=== PATIENT | female | born 1990 | race Caucasian/White ===

== ENCOUNTER 2019-02-24 17:50 | Emergency (ER) | payer MEDICAID ==
[~2019-02-24] VITALS: Ht 154.9 cm; Wt 90.3 kg
[2019-02-24 17:56] VITALS: BP 153/85
--- NOTE | 2019-02-24 17:58 | NUR ---
TO LOBBY AWAITNG BED IN ED
--- NOTE | 2019-02-24 18:22 | NUR ---
PT TO ER BED 11.
--- NOTE | 2019-02-24 18:36 | NUR ---
PT BIB FAMILY C/O INTERMITENT BUE NUMBNESS X 1 WEEK. PT REPORTS ACCOMPANYING THROBING MIDSTERNAL CP THAT RADIATES TO LT AXILARY WITH ANXIETY. PT AAOX4, COOPERATIVE, FACIAL ASSYMETRY INTACT, HAND BURR GRINDER EQUAL/STRONG, GAIT STEADY, SPEECH CLEAR. NO EDEMA, JUGULAR CLEMENTE DISTENTION, CAP REFIL <2 SEC. VSS. ER MD TO SEE PT. MEDHX:ANXIETY RX:DENIES
--- NOTE | 2019-02-24 19:57 | NUR ---
DR. AUSTIN BEDSIDE EVALUATING PT
[2019-02-24 20:37] LABS: BASOPHILS % (AUTO) 0.5 % (0.0-2.0); EOSINOPHILS # (AUTO) 0.1 K/uL (0-0.4); EOSINOPHILS % (AUTO) 1.2 % (0.0-4.0); HEMATOCRIT 43.2 % (36-48); HEMOGLOBIN 14.3 g/dL (12.0-16.0); MEAN CORPUSCULAR HEMOGLOBIN 29 pg (27-31); MEAN CORPUSCULAR HGB CONC 33 g/dL (33-37); MEAN CORPUSCULAR VOLUME 87.3 fL (80-94); MONOCYTES # (AUTO) 0.6 K/uL (0.8-1.0); MONOCYTES % (AUTO) 6.7 % (1.7-9.3); NEUTROPHILS # (AUTO) 5.7 K/uL (1.8-7.7); NEUTROPHILS % (AUTO) 67.6 % (42.2-75.2); PLATELET COUNT (AUTO) 208 K/uL (140-450); RED BLOOD CELL COUNT(AUTO) 4.95 MIL/uL (4.20-5.40); RED CELL DISTRIBUTION WIDTH 13.9 % (11.6-13.7); WHITE BLOOD COUNT (AUTO) 8.4 K/uL (4.8-10.8)
[2019-02-24 21:18] LABS: ANION GAP 14.2 (8-16); CARBON DIOXIDE 26.5 mmol/L (21-32); CREATININE 0.6 mg/dL (0.6-1.3); POTASSIUM 3.7 mmol/L (3.5-5.1)
[2019-02-24 22:18] VITALS: BP 113/59
--- NOTE | 2019-02-24 22:18 | NUR ---
Patient discharged with v/s stable. Written and verbal after care instructions given and explained. Patient verbalized understanding. Ambulatory with steady gait. All questions addressed prior to discharge. Advised to follow up with PMD.
== END 2019-02-24 22:18 | disposition home or self-care (01) ==
LOC: MED 17:50
DX: M79.601 Pain in right arm (principal); M79.602 Pain in left arm; M79.605 Pain in left leg; M79.604 Pain in right leg
CPT/HCPCS: 36415; 80048; 81002; 81025; 82553; 85025; 99283

== ENCOUNTER 2019-03-23 04:21 | Emergency (ER) | payer MEDICAID ==
[~2019-03-23] VITALS: Ht 154.9 cm; Wt 89.4 kg
[2019-03-23 04:25] VITALS: BP 125/77
--- NOTE | 2019-03-23 04:25 | NUR ---
TO BED # 04 AMBULATORY
--- NOTE | 2019-03-23 04:50 | NUR ---
C/O LEFT SIDE SHARP, BURNING DIFFUSE ABD PAIN OFF AND ON X 2 DAYS WITH MILD N/V. PT DENIES DIARRHEA. PT STATES "I MIGHT BE A LITTLE CONSTIPATED". DENIES DYSURIA. PMH-- APPENDECTOMY @ 8 YEARS OLD RX-- DENIES
--- NOTE | 2019-03-23 04:57 | NUR ---
Dr. Bowie examining patient.
[2019-03-23] MEDS ORDERED: KETOROLAC 60 MG/2 ML VIAL IM ONE (05:00)
[2019-03-23] MEDS ORDERED: ONDANSETRON 4 MG ODT PO ONE (05:00)
--- NOTE | 2019-03-23 05:10 | NUR ---
PT RECEIVED 60 MG IM TORADOL FOR 10/10 ABD PAIN. WILL REASSESS.
[2019-03-23] MEDS ORDERED: MORPHINE SULFATE 4 MG/ML SYR IM ONE (05:35)
--- NOTE | 2019-03-23 05:40 | NUR ---
PT REPORTS MINIMLA RELIEF IN PAIN. FACIAL GRIMACING, GUARDING ABD. 8/[address] KIDD MADE AWARE. NEW ORDERS RECEIVED.
--- NOTE | 2019-03-23 05:52 | NUR ---
PT RECEIVED 4 MG IM MORPHINE FOR 8 PAIN. WILL REASSESS.
--- NOTE | 2019-03-23 06:12 | NUR ---
PT REPORTS RELIEF IN PAIN; 5/10.
[2019-03-23 06:14] VITALS: BP 122/78
--- NOTE | 2019-03-23 06:14 | NUR ---
Patient discharged with v/s stable. Written and verbal after care instructions given and explained. Patient verbalized understanding. Rx for Motrin, Prilosec, Zofran given. Ambulatory with steady gait. All questions addressed prior to discharge. Advised to follow up with PMD.
== END 2019-03-23 06:14 | disposition home or self-care (01) ==
LOC: MED 04:21
DX: R10.12 Left upper quadrant pain (principal); R11.0 Nausea; Z90.49 Acquired absence of other specified parts of digestive tract
CPT/HCPCS: 81002; 81025; 96372; 99283; J1885; J2270; Q0162

== ENCOUNTER 2019-07-05 19:01 | Emergency (ER) | payer MEDICAID ==
[~2019-07-05] VITALS: Ht 154.9 cm; Wt 90.7 kg
[2019-07-05 19:12] VITALS: BP 122/81
--- NOTE | 2019-07-05 19:20 | NUR ---
28 YEAR OLD FEMALE COMPLAINS OF 9/10 CHEST PAIN THAT RADIATES TO LEFT ARM X 2 WEEKS. PATIENT ALSO COMPLAINS OF SOME NUMBNESS TO LEFT SIDE OF FACE. PATIENT COMPLAINS OF SOME SOB. LUNGS CTABL, SPO2 99%. PATIENT AOX4, BREATHING EVEN AND UNLABORED, SKIN WARM AND DRY. BED IN LOWEST POSIITON, LOCKED, BED RAIL UPX1. ERMD MADE AWARE OF STATUS, EMT WITH EKG AT BEDSIDE. PMH - APPENDIX REMOVAL ALLERGIES - NKA
[2019-07-05] MEDS ORDERED: KETOROLAC 15 MG/ML VIAL IM ONE (19:30)
[2019-07-05] MEDS ORDERED: LORazepam 2 MG/ML VIAL IVP ONE (19:30)
[2019-07-05] MEDS ORDERED: LORazepam 2 MG/ML VIAL IM ONE (19:35)
[2019-07-05 20:46] VITALS: BP 118/66
== END 2019-07-05 20:46 | disposition home or self-care (01) ==
LOC: MED 19:01
DX: R07.89 Other chest pain (principal); R06.02 Shortness of breath; R20.2 Paresthesia of skin; Z90.49 Acquired absence of other specified parts of digestive tract
CPT/HCPCS: 71045; 81025; 93005; 96372; 99284; J1885; J2060

== ENCOUNTER 2019-09-02 13:45 | Emergency (ER) | payer MEDICAID ==
[~2019-09-02] VITALS: Ht 154.9 cm; Wt 88.2 kg
[2019-09-02 13:52] VITALS: BP 126/69
--- NOTE | 2019-09-02 14:08 | NUR ---
DR ELLIOTT EVALUATING PT AT BEDSIDE
[2019-09-02] MEDS ORDERED: MORPHINE SULFATE 4 MG/ML SYR IVP ONE (14:10)
--- NOTE | 2019-09-02 14:29 | NUR ---
U/S TECH AT BEDSIDE
[2019-09-02 14:31] LABS: BASOPHILS % (AUTO) 0.6 % (0.0-2.0); EOSINOPHILS # (AUTO) 0.1 K/uL (0-0.4); EOSINOPHILS % (AUTO) 1.8 % (0.0-4.0); HEMATOCRIT 44.6 % (36-48); LYMPHOCYTES # (AUTO) 2.3 K/uL (2.5-16.5); LYMPHOCYTES % (AUTO) 33.9 % (20.5-51.1); MEAN CORPUSCULAR HEMOGLOBIN 30 pg (27-31); MEAN CORPUSCULAR HGB CONC 34 g/dL (33-37); MEAN CORPUSCULAR VOLUME 88.1 fL (80-94); MONOCYTES # (AUTO) 0.5 K/uL (0.8-1.0); MONOCYTES % (AUTO) 6.9 % (1.7-9.3); NEUTROPHILS # (AUTO) 3.9 K/uL (1.8-7.7); NEUTROPHILS % (AUTO) 56.8 % (42.2-75.2); PLATELET COUNT (AUTO) 211 K/uL (140-450); RED BLOOD CELL COUNT(AUTO) 5.06 MIL/uL (4.20-5.40); RED CELL DISTRIBUTION WIDTH 14.2 % (11.6-13.7); WHITE BLOOD COUNT (AUTO) 6.9 K/uL (4.8-10.8)
--- NOTE | 2019-09-02 14:50 | NUR ---
29/F RUQ PAIN RADIATING TO BACK X 3 WEEKS. REPORTS INCREASE IN PAIN THIS WEEK. STATES OCCASIONAL NAUSEA WITHOUT VOMITING. STATES DECREASED APPETITE. 8/10 NOW, WORSE AFTER EATING VSS PMHX--NONE NKDA NEGATIVE COVID SCREENING.
[2019-09-02 14:52] LABS: ALBUMIN 4.2 g/dL (3.4-5.0); ANION GAP 12.8 (8-16); CARBON DIOXIDE 25.6 mmol/L (21-32); CREATININE 0.8 mg/dL (0.6-1.3); POTASSIUM 3.4 mmol/L (3.5-5.1); TOTAL BILIRUBIN 0.6 mg/dL (0.0-1.0)
--- NOTE | 2019-09-02 15:38 | NUR ---
PT STATES PAIN HAS DECREASED NOW TO 4/10 FROM 8/10 EARLIER.
--- NOTE | 2019-09-02 15:57 | NUR ---
NOTIFIED CT DEPARTMENT TO COME GET PATIENT FOR ORDERED CT SCAN.
--- NOTE | 2019-09-02 16:05 | NUR ---
CT SCAN TECHNICIAN AT BEDSIDE, PT TO CT SCAN VIA W/C.
[2019-09-02 16:45] VITALS: BP 103/62
--- NOTE | 2019-09-02 16:45 | NUR ---
Patient discharged with v/s stable. Written and verbal after care instructions given and explained. Patient alert, oriented and verbalized understanding of instructions. Ambulatory with steady gait. All questions addressed prior to discharge. ID band removed. Patient advised to follow up with PMD. Rx of ZANTAC given. Patient educated on indication of medication including possible reaction and side effects. Opportunity to ask questions provided and answered.
== END 2019-09-02 16:45 | disposition home or self-care (01) ==
LOC: MED 13:45
DX: K76.0 Fatty (change of) liver, not elsewhere classified (principal); K29.70 Gastritis, unspecified, without bleeding; Z90.49 Acquired absence of other specified parts of digestive tract
CPT/HCPCS: 36415; 74176; 76705; 80053; 81025; 83690; 85025; 96374; 99285; J2270; Q0092

== ENCOUNTER 2019-11-02 22:23 | Emergency (ER) | payer MEDICAID ==
[~2019-11-02] VITALS: Ht 154.9 cm; Wt 90.3 kg
[2019-11-02 22:25] VITALS: BP 129/70
[2019-11-02] MEDS ORDERED: cloNIDine 0.1 MG TAB PO STA (23:18)
[2019-11-03 00:09] VITALS: BP 113/65
== END 2019-11-03 00:08 | disposition home or self-care (01) ==
LOC: MED 22:23
DX: F41.9 Anxiety disorder, unspecified (principal); F41.0 Panic disorder [episodic paroxysmal anxiety]; F32.9 Major depressive disorder, single episode, unspecified; I10 Essential (primary) hypertension
CPT/HCPCS: 99283

== ENCOUNTER 2020-01-19 15:40 | Emergency (ER) | payer MEDICAID ==
[~2020-01-19] VITALS: Ht 154.9 cm; Wt 86.2 kg
[2020-01-19 15:42] VITALS: BP 140/79
--- NOTE | 2020-01-19 15:49 | NUR ---
Patient ambulated to bed 3. RN evaluating patient at bedside.
--- NOTE | 2020-01-19 15:50 | NUR ---
STATES NAUSEA WITHOUT VOMITING. NO FEVER. PAIN CONSTANT THROUGHOUT DAY, NOT WORSE AFTER EATING. PT AOX4 , AFIBRILE , AMBULAORY WITH STEADY GAIT, PINK PALPEBRAL CONJUNCTIVA , ANICTERIC SCLERA , SCE, FLAT SOFT ABDOMEN. HX- DENIES NKA
--- NOTE | 2020-01-19 16:02 | NUR ---
ERMA MONTOYA AT BEDSIDE EVALUATING PT.
[2020-01-19] MEDS ORDERED: KETOROLAC 30 MG/ML VIAL IM ONE (16:05)
[2020-01-19] MEDS ORDERED: DICYCLOMINE HCL LIQUID 20 MG, ALUMINUM HYD/MAG/SIMETHICONE 30 ML, LIDOCAINE VISCOUS 2% ... PO ONE ×3 (16:05)
[2020-01-19] MEDS ORDERED: LIDOCAINE VISCOUS 2% 20 ML UDC ONE (16:09)
[2020-01-19] MEDS ORDERED: DICYCLOMINE HCL LIQUID 10 MG/5 ML UDC ONE (16:09)
[2020-01-19] MEDS ORDERED: ALUMINUM HYD/MAG/SIMETHICONE 30 ML UDC ONE (16:09)
--- NOTE | 2020-01-19 16:22 | NUR ---
PT COMFORTABLE IN BED SIDE RAIL UP X1 AND LOCK AT LOWEST POSITION.
[2020-01-19 16:42] LABS: BASOPHILS % (AUTO) 0.3 % (0.0-2.0); EOSINOPHILS # (AUTO) 0.1 K/uL (0-0.4); EOSINOPHILS % (AUTO) 1.4 % (0.0-4.0); HEMATOCRIT 41.7 % (36-48); HEMOGLOBIN 13.8 g/dL (12.0-16.0); LYMPHOCYTES # (AUTO) 2.1 K/uL (2.5-16.5); LYMPHOCYTES % (AUTO) 32.7 % (20.5-51.1); MEAN CORPUSCULAR HEMOGLOBIN 29 pg (27-31); MEAN CORPUSCULAR HGB CONC 33 g/dL (33-37); MEAN CORPUSCULAR VOLUME 87.7 fL (80-94); MONOCYTES # (AUTO) 0.4 K/uL (0.8-1.0); NEUTROPHILS # (AUTO) 3.9 K/uL (1.8-7.7); NEUTROPHILS % (AUTO) 59.6 % (42.2-75.2); PLATELET COUNT (AUTO) 211 K/uL (140-450); RED BLOOD CELL COUNT(AUTO) 4.76 MIL/uL (4.20-5.40); RED CELL DISTRIBUTION WIDTH 13.8 % (11.6-13.7); WHITE BLOOD COUNT (AUTO) 6.6 K/uL (4.8-10.8)
[2020-01-19 17:01] LABS: ALBUMIN 3.9 g/dL (3.4-5.0); ANION GAP 13.9 (8-16); CARBON DIOXIDE 27.5 mmol/L (21-32); CREATININE 0.5 mg/dL (0.6-1.3); POTASSIUM 3.4 mmol/L (3.5-5.1); TOTAL BILIRUBIN 0.5 mg/dL (0.0-1.0)
--- NOTE | 2020-01-19 17:15 | NUR ---
benita mercado at bedside reevaluating pt.
--- NOTE | 2020-01-19 17:23 | NUR ---
ERMA Mendoza and Dr. Bonner are evaluating the patient at bedside.
[2020-01-19 17:42] VITALS: BP 135/75
--- NOTE | 2020-01-19 17:43 | NUR ---
Patient discharged with v/s stable. Written and verbal after care instructions given and explained regarding abdominal pain nonspecific. Patient alert, oriented and verbalized understanding of instructions. Ambulatory with steady gait. All questions addressed prior to discharge. ID band removed. Patient advised to follow up with PMD. Rx of bentyl , pepcid and zofran given. Patient educated on indication of medication including possible reaction and side effects. Opportunity to ask questions provided and answered.Excuse from work given .
== END 2020-01-19 17:43 | disposition home or self-care (01) ==
LOC: MED 15:40
DX: R10.31 Right lower quadrant pain (principal); R03.0 Elevated blood-pressure reading, without diagnosis of hypertension
CPT/HCPCS: 36415; 80053; 81002; 81025; 83690; 85025; 96372; 99283; J1885

== ENCOUNTER 2020-08-26 19:07 | Emergency (ER) | payer MEDICAID ==
[~2020-08-26] VITALS: Ht 152.4 cm; Wt 87.5 kg
[2020-08-26 19:16] VITALS: BP 115/66
--- NOTE | 2020-08-26 19:21 | NUR ---
PT AMBULATORY TO BED #7
[2020-08-26] MEDS ORDERED: ALUMINUM HYD/MAG/SIMETHICONE 30 ML, DICYCLOMINE HCL LIQUID 20 MG, LIDOCAINE VISCOUS 2% ... PO ONE ×3 (19:30)
[2020-08-26] MEDS ORDERED: NACL 0.9% 1,000 ML IV SCH (19:30)
[2020-08-26] MEDS ORDERED: DICYCLOMINE HCL LIQUID 10 MG/5 ML UDC ONE (19:37)
[2020-08-26] MEDS ORDERED: ALUMINUM HYD/MAG/SIMETHICONE 30 ML UDC ONE (19:37)
[2020-08-26] MEDS ORDERED: LIDOCAINE VISCOUS 2% 20 ML UDC ONE (19:37)
--- NOTE | 2020-08-26 19:50 | NUR ---
30 Y/O FEMALE PRESENTED TO ED C/O UPPER QUADRANT ABD PAIN X 1 WEEK. PT STATES SHE HAS BEEN WORKING 11 HR SHIFTS AND STARTING FEELING TIRED AND WEAK AND THEN STARTED HAVING ABD PAIN. PT STATES SHE WENT AND SAW HER PCP TODAY AND WAS DX W/ GASTRITIS AND PROVIDED W/ RX OF OMEPRAZOLE. PT STATES SHE HAS TRIED TAKING OMEPRAZOLE W/ NO RELIEF. PT STATES HER ABD FEELS BLOATED AND HAS INTERMITTENT PAIN TO HER BACK. NORMOACTIVE BOWEL SOUNDS. PT STATES SHE HAS HAD A BM TODAY BUT IT WAS SMALL. SHE HAS HAD NO PREVIOUS ABNORMAL BM AT THIS TIME. PT DENIES ANY NAUSEA , VOMITTING , DIARRHEA OR CONSTIPATION. PT PLACED IN GOWN, RESTING IN BED LOCKED AND IN LOWEST POSITION, HOB ELEVATED, SIDE RAIL X 1. VSS. NO ACUTE DISTRESS NOTED. PMH: HTN, GASTRITIS NKA
[2020-08-26 20:20] LABS: BASOPHILS % (AUTO) 0.4 % (0.0-2.0); HEMATOCRIT 45.4 % (36-48); HEMOGLOBIN 15.4 g/dL (12.0-16.0); LYMPHOCYTES # (AUTO) 1.1 K/uL (2.5-16.5); LYMPHOCYTES % (AUTO) 25.7 % (20.5-51.1); MEAN CORPUSCULAR HEMOGLOBIN 30 pg (27-31); MEAN CORPUSCULAR HGB CONC 34 g/dL (33-37); MEAN CORPUSCULAR VOLUME 88.3 fL (80-94); MONOCYTES # (AUTO) 0.4 K/uL (0.8-1.0); MONOCYTES % (AUTO) 10.1 % (1.7-9.3); NEUTROPHILS # (AUTO) 2.8 K/uL (1.8-7.7); NEUTROPHILS % (AUTO) 63.8 % (42.2-75.2); PLATELET COUNT (AUTO) 161 K/uL (140-450); RED BLOOD CELL COUNT(AUTO) 5.14 MIL/uL (4.20-5.40); RED CELL DISTRIBUTION WIDTH 13.9 % (11.6-13.7); WHITE BLOOD COUNT (AUTO) 4.4 K/uL (4.8-10.8)
--- NOTE | 2020-08-26 20:31 | NUR ---
ERMD MADE AWARE PT IS STILL C/O OF 11/23 ADB PAIN - ERMD WILL ORDER MEDICATION FOR PAIN.
[2020-08-26 20:37] LABS: ALBUMIN 4.2 g/dL (3.4-5.0); ANION GAP 8.9 (8-16); CARBON DIOXIDE 26.6 mmol/L (21-32); CREATININE 0.7 mg/dL (0.6-1.3); POTASSIUM 3.5 mmol/L (3.5-5.1); TOTAL BILIRUBIN 0.4 mg/dL (0.0-1.0)
[2020-08-26] MEDS ORDERED: KETOROLAC 30 MG/ML VIAL IVP ONE (20:40)
--- NOTE | 2020-08-26 21:22 | NUR ---
ERMD AT BEDSIDE FOR MEDICAL EVALUATION.
[2020-08-26] MEDS ORDERED: ACET-8386 PO (21:32)
--- NOTE | 2020-08-26 21:40 | NUR ---
IV removed, catheter intact and site benign. Applied folded 4x4 gauze and tape to stop bleeding.
[2020-08-26 21:44] VITALS: BP 120/68
[2020-08-26 22:18] LABS: APPEARANCE,URINE CLEAR (CLEAR); BILIRUBIN,URINE NEGATIVE (NEGATIVE); BLOOD, URINE TRACE-I (NEGATIVE); COLOR,URINE YELLOW (YELLOW); LEUKOCYTE ESTERASE ,URINE TRACE (NEGATIVE); NITRITE, URINE NEGATIVE (NEGATIVE); PH,URINE 6.5 (5.0-9.0); UGLUCOSE NEGATIVE (NEGATIVE)
[2020-08-26 22:36] LABS: RBC,URINE 0-5 /HPF (0-5)
== END 2020-08-26 21:44 | disposition home or self-care (01) ==
LOC: MED 19:07
DX: R10.13 Epigastric pain (principal); Z90.49 Acquired absence of other specified parts of digestive tract
CPT/HCPCS: 36415; 80053; 81001; 81025; 83690; 85025; 87086; 96374; 99283; J1885; J7030

== ENCOUNTER 2021-07-05 21:55 | Emergency (ER) | payer MEDICAID ==
[~2021-07-05] VITALS: Ht 154.9 cm; Wt 87.7 kg
[~2021-07-05 21:55] MED LIST: ACET-8386 PO
[2021-07-05 22:00] VITALS: BP 121/77
--- NOTE | 2021-07-05 22:00 | NUR ---
TO BED AMBULATORY
--- NOTE | 2021-07-05 22:25 | NUR ---
30 Y/O FEMALE BIB SELF, C/O BATES, L LUMABAR PAIN (X2 DAYS), DIZZINESS (X2 WKS), AND NAUSEA (X2 DAYS). PATIENT PRESENTS TO ED 11WKS . PT STATES WHENEVER SHE HAS SOMETHING TO DRINK SHE VOMITS IT BACK UP. DENIES DIARRHEA; SKIN IS PINK/WARM/DRY; AAOX4 WITH EVEN AND STEADY GAIT; LUNGS CLEAR BL; HR EVEN AND REGULAR; PT DENIES ANY FEVER, CP, SOB, OR COUGH AT THIS TIME; VSS; PATIENT POSITIONED FOR COMFORT; HOB ELEVATED; BEDRAILS UP X1; BED DOWN. ER MD MADE AWARE OF PT STATUS. PT STATES SHE IS BETWEEN OBGYN AND NEXT APPT IS 08/11. HX: APPENDECTOMY NKDA MEDS VITAMINS AND FOLIC ACID
--- NOTE | 2021-07-05 22:25 | NUR ---
URINE COLLECTED AND WALKED TO LAB
[2021-07-05] MEDS ORDERED: ACETAMINOPHEN EXTRA STRENGTH 500 MG TAB PO ONE (22:30)
[2021-07-05] MEDS ORDERED: NACL 0.9% 1,000 ML IV ONE (22:30)
[2021-07-05] MEDS ORDERED: ONDANSETRON 4 MG/2 ML VIAL IVP ONE (22:30)
--- NOTE | 2021-07-05 22:42 | NUR ---
LABS AT BEDSIDE
[2021-07-05 22:57] LABS: APPEARANCE,URINE CLEAR (CLEAR); BILIRUBIN,URINE NEGATIVE (NEGATIVE); BLOOD, URINE TRACE-I (NEGATIVE); COLOR,URINE YELLOW (YELLOW); LEUKOCYTE ESTERASE ,URINE NEGATIVE (NEGATIVE); NITRITE, URINE NEGATIVE (NEGATIVE); PH,URINE 6.5 (5.0-9.0); UGLUCOSE NEGATIVE (NEGATIVE)
--- NOTE | 2021-07-05 23:11 | NUR ---
ULTRASOUND AT BEDSIDE
[2021-07-05 23:12] LABS: RBC,URINE 0-5 /HPF (0-5); WBC,URINE 0-5 /HPF (0-5)
[2021-07-05 23:20] LABS: BASOPHILS % (AUTO) 0.2 % (0.0-2.0); EOSINOPHILS # (AUTO) 0.1 K/uL (0-0.4); EOSINOPHILS % (AUTO) 1.4 % (0.0-4.0); HEMATOCRIT 38.9 % (36-48); HEMOGLOBIN 13.3 g/dL (12.0-16.0); LYMPHOCYTES # (AUTO) 2.4 K/uL (2.5-16.5); MEAN CORPUSCULAR HEMOGLOBIN 30 pg (27-31); MEAN CORPUSCULAR HGB CONC 34 g/dL (33-37); MONOCYTES # (AUTO) 0.5 K/uL (0.8-1.0); MONOCYTES % (AUTO) 5.8 % (1.7-9.3); NEUTROPHILS # (AUTO) 6.1 K/uL (1.8-7.7); NEUTROPHILS % (AUTO) 66.6 % (42.2-75.2); PLATELET COUNT (AUTO) 222 K/uL (140-450); RED BLOOD CELL COUNT(AUTO) 4.47 MIL/uL (4.20-5.40); RED CELL DISTRIBUTION WIDTH 14.4 % (11.6-13.7); WHITE BLOOD COUNT (AUTO) 9.2 K/uL (4.8-10.8)
[2021-07-05 23:38] LABS: ALBUMIN 3.2 g/dL (3.4-5.0); ANION GAP 12.3 (8-16); CARBON DIOXIDE 25.4 mmol/L (21-32); CREATININE 0.4 mg/dL (0.6-1.3); POTASSIUM 3.7 mmol/L (3.5-5.1); TOTAL BILIRUBIN 0.2 mg/dL (0.0-1.0)
--- NOTE | 2021-07-06 00:31 | NUR ---
SPOUSE AT BEDSIDE
[2021-07-06 01:14] VITALS: BP 120/79
--- NOTE | 2021-07-06 01:14 | NUR ---
Patient discharged with v/s stable. Written and verbal after care instructions given and explained. Patient verbalized understanding. Ambulatory with steady gait. All questions addressed prior to discharge. Advised to follow up with PMD. A/OX4, VSS, AMBULATORY, UNLABORED BREATHING, AND CALM DEMEANOR.
== END 2021-07-06 01:14 | disposition home or self-care (01) ==
LOC: MED 21:55
DX: O26.891 Other specified pregnancy related conditions, first trimester (principal); R10.9 Unspecified abdominal pain; R42 Dizziness and giddiness; I10 Essential (primary) hypertension; Z90.49 Acquired absence of other specified parts of digestive tract; Z79.899 Other long term (current) drug therapy; Z3A.11 11 weeks gestation of pregnancy
CPT/HCPCS: 36415; 76801; 80053; 81001; 84702; 85025; 86900; 86901; 96361; 96374; 99284; J2405; J7030; Q0092

== ENCOUNTER 2023-03-05 14:58 | Emergency (ER) | payer MEDICAID ==
[~2023-03-05] VITALS: Ht 154.9 cm; Wt 75.3 kg
[~2023-03-05 14:58] MED LIST changes: -ACET-8386 PO; +ACET-8905 PO
[2023-03-05 15:29] VITALS: BP 125/73; PULSE 74; RESP 18; TEMP 97.9
[2023-03-05] MEDS ORDERED: KETOROLAC 60 MG/2 ML VIAL IM ONE (16:35)
[2023-03-05] MEDS ORDERED: ATA25 PO (16:36)
[2023-03-05] MEDS ORDERED: IBUP-2213 PO (16:36)
[2023-03-05 17:06] VITALS: BP 125/73; PULSE 74; RESP 18; TEMP 97.9
== END 2023-03-05 17:07 | disposition home or self-care (01) ==
LOC: MED 14:58
DX: H57.12 Ocular pain, left eye (principal); F41.9 Anxiety disorder, unspecified; Z79.899 Other long term (current) drug therapy
CPT/HCPCS: 96372; 99283; J1885